=== PATIENT | male | born 1980 | race Hispanic/Latino ===

== ENCOUNTER 2020-06-21 09:06 | Emergency (ER) | payer MEDICARE ==
[2020-06-21 10:00] LABS: Absolute Lymphocytes (CBC) 1.6 K/uL (0.7-4.9); Basophils % 0.7 % (0-1.3); Hematocrit 49.8 % (39.6-49.0); Lymphocytes % 19.5 % (15.3-44.8); MPV 9.7 fL (7.6-11.3); RBC Red Blood Cell Count 5.51 M/uL (4.33-5.43)
[2020-06-21 10:05] LABS: Protime INR 0.99
[2020-06-21 10:28] LABS: ALT/SGPT 44 U/L (12-78); AST/SGOT 27 U/L (15-37); Albumin 4.1 g/dL (3.4-5.0); Alkaline Phosphatase 67 U/L (45-117); BUN Blood Urea Nitrogen 10 mg/dL (7-18); Bicarbonate 26 mmol/L (21-32); Bilirubin Direct 0.1 mg/dL (0-0.2); Bilirubin Total 0.5 mg/dL (0.2-1.0); Glucose Level 100 mg/dL (74-106); Magnesium 2.1 mg/dL (1.8-2.4); NT PRO-BNP 41 pg/mL (<125); Potassium 3.9 mmol/L (3.5-5.1); Protein, Total 8.2 g/dL (6.4-8.2); Sodium Level 138 mmol/L (136-145); Troponin (Emerg Dept Use Only) < 0.02 ng/mL (0.0-0.045)
--- NOTE | 2020-06-21 10:30 | RAD REPORT ---
EXAM DESCRIPTION: CT - Head Brain Wo Cont - 06/21/2020 10:00 am CLINICAL HISTORY: Dizziness COMPARISON: None. TECHNIQUE: Computed axial tomography of the head was obtained. IV contrast was not requested. All CT scans are performed using dose optimization technique as appropriate and may include automated exposure control or mA/KV adjustment according to patient size. FINDINGS: An intracranial bleed is not seen . The ventricles are normal in caliber. No extra-axial fluid collection is noted. Fluid within the sinuses/ mastoids is not seen. IMPRESSION: No acute intracranial abnormality is seen. If patient's symptoms persist MRI of the bra in would be recommended.
--- NOTE | 2020-06-21 10:35 | RAD REPORT ---
EXAM DESCRIPTION: CT - Abdomen Pelvis W Contrast - 06/21/2020 10:03 am CLINICAL HISTORY: Abdominal pain COMPARISON: none. TECHNIQUE: Computed axial tomography of the abdomen pelvis was obtained. 100 cc Isovue-300 was admin istered intravenously. Oral contrast was not requested which limits evaluation of bowel. All CT scans are performed using dose optimization technique as appropriate and may include automated exposure control or mA/KV adjustment according to patient size. FINDINGS: The liver, spleen, pancreas, adrenal and and left kidney appear unremarkable. A 2.5 centimeter mass is present within the right kidney. [place] [id number]. A couple of tiny nonobstructing right renal calculi are seen. Post surgical changes involve the spine. The wall of the transverse colon appears mildly thickened. Normal appendix Rectum is mildly distended with stool There is no evidence of diverticulitis. IMPRESSION: 2.5 centimeter right renal mass may represent a benign complex cyst or neoplasm. It is r ecommended that the patient have an unenhanced CT scan of the kidneys on another date. This can then be compared to the current exam to determine if there is abnormal enhancement to suggest neoplasm Tiny nonobstructing right renal calculi The wall of the transverse colon appears mildly thickened. It is uncertain whether this is simply sec ondary to incomplete distention or mild colitis
--- NOTE | 2020-06-21 10:53 | RAD REPORT ---
EXAM DESCRIPTION: Sharon Single View06/21/2020 10:29 am CLINICAL HISTORY: Chest pain COMPARISON: none FINDINGS: Calcified granuloma right lung. The lungs appear clear of acute infiltrate. The heart is normal size IMPRESSION: No acute abnormalities displayed
--- NOTE | 2020-06-21 11:25 | EDPHYS ---
Physician Documentation [facility] Name: Margarito Corley Age: 39 yrs Sex: Male : 1980 Arrival Date: 06/21/2020 Time: 09:12 Bed 20 Private MD: ED Physician Don Cesar HPI: 06/21 09:41 This 39 yrs old Male presents to ER via Ambulatory with complaints of High jmm Blood Pressure, Rectal Bleeding, Abdominal Cramping. 09:41 The patient presents to the emergency department with bleeding from the rectum/anus. jmm Onset: The symptoms/episode began/occurred gradually, today. This is a 39 year old male with a history of htn, renal mass that presents to the ED with complaints of elevated blood pressure, dizziness, and rectal bleeding beginning today while at work. Patient states he has been previously diagnosed with a rectal cyst and a renal mass this year. . Historical: - Allergies: 09:38 Codeine; em - PMHx: 09:38 Hypertension; em - PSHx: 09:38 back sx; em - Immunization history:: Flu vaccine is not up to date. - Social history:: Smoking status: Patient reports the use of cigarette tobacco products, smokes one-half pack cigarettes per day. ROS: 09:41 Constitutional: Negative for fever, chills, and weight loss, Cardiovascular: Negative jmm for chest pain, palpitations, and edema, Respiratory: Negative for shortness of breath, cough, wheezing, and pleuritic chest pain. 09:41 Abdomen/GI: Positive for rectal bleeding. 09:41 All other systems are negative. Exam: 09:41 Constitutional: This is a well developed, well nourished patient who is awake, alert, jmm and in no acute distress. Head/Face: atraumatic. Eyes: EOMI, no conjunctival erythema appreciated ENT: Moist Mucus Membranes Neck: Trachea midline, Supple Chest/axilla: Normal chest wall appearance and motion. Cardiovascular: Regular rate and rhythm. No edema appreciated Respiratory: Normal respirations, no respiratory distress appreciated Abdomen/GI: Non distended, soft Back: Normal ROM Skin: General appearance color normal MS/ Extremity: Moves all extremities, no obvious deformities appreciated, no edema noted to the lower extremities Neuro: Awake and alert, normal gait Psych: Behavior is normal, Mood is normal, Patient is cooperative and pleasant 10:47 ECG was reviewed by the Attending Physician. [facility] Vital Signs: 09:35 BP 128 / 93; Pulse 81; Resp 18; Temp 98.1(O); Pulse Ox 98% on R/A; Weight 97.52 kg; em Height 5 ft. 10 in. (177.80 cm); Pain 0/10; 10:47 BP 122 / 82; Pulse 58; Resp 18; Pulse Ox 99% on R/A; em 11:51 BP 142 / 79; Pulse 71; Resp 18; Pulse Ox 99% on R/A; em 09:35 Body Mass Index 30.85 (97.52 kg, 177.80 cm) em MDM: 09:38 Patient medically screened. [facility] 11:23 Data reviewed: vital signs, nurses notes. Counseling: I had a detailed discussion with [facility] the patient and/or guardian regarding: the historical points, exam findings, and any diagnostic results supporting the discharge/admit diagnosis, lab results, radiology results, the need for outpatient follow up, to return to the emergency department if symptoms worsen or persist or if there are any questions or concerns that arise at home. ED course: Patient is alert and non toxic in appearance in the ED. Patient is advised to follow up with GI for further evaluation. Patient is already aware of renal mass. I discussed the need for further evaluation with biopsy. Patient is otherwise given strict return precautions. patient understood and agrees with the plan of care. . 06/21 09:39 Order name: Basic Metabolic Panel; Complete Time: 10:38 [facility] 06/21 09:39 Order name: CBC with Diff; Complete Time: 10:14 [facility] 06/21 09:39 Order name: LFT's; Complete Time: 10:38 [facility] 06/21 09:39 Order name: Magnesium; Complete Time: 10:38 [facility] 06/21 09:39 Order name: NT PRO-BNP; Complete Time: 10:38 [facility] 06/21 09:39 Order name: PT-INR; Complete Time: 10:14 [facility] 06/21 09:17 Order name: Gown patient; Complete Time: 09:22 [facility] 06/21 09:39 Order name: Troponin (emerg Dept Use Only); Complete Time: 10:38 [facility] 06/21 09:39 Order name: XRAY Chest (1 view); Complete Time: 10:56 06/21 09:39 Order name: EKG; Complete Time: 09:40 06/21 09:39 Order name: Cardiac monitoring; Complete Time: 09:50 06/21 09:39 Order name: EKG - Nurse/Tech; Complete Time: 10:51 06/21 09:39 Order name: CT Abd/Pelvis - IV Contrast Only; Complete Time: 10:38 06/21 09:41 Order name: CT Head Brain wo Cont; Complete Time: 10:38 06/21 09:39 Order name: IV Saline Lock; Complete Time: 10:27 06/21 09:39 Order name: Labs collected and sent; Complete Time: 10: 06/21 09:39 Order name: O2 Per Protocol; Complete Time: 10:06/21 09:39 Order name: O2 Sat Monitoring; Complete Time: 09:50 jmm EC:47 Rate is 59 beats/min. Rhythm is regular. QRS [place] is Normal. MO interval is normal. QRS jmm interval is normal. QT interval is normal. No Q waves. T waves are Normal. No ST changes noted. Reviewed by me. Administered Medications: No medications were administered Disposition: 17:02 Co-signature as Attending Physician, Don Cesar MD. rn Disposition: 06/21/20 11:25 Discharged to Home. Impression: Colitis. - Condition is Stable. - Discharge Instructions: Colitis. - Prescriptions for Flagyl 500 mg Oral Tablet - take 1 tablet by ORAL route every 6 hours for 10 days; 40 tablet. Cipro 500 mg Oral Tablet - take 1 tablet by ORAL route every 12 hours for 7 days; 20 tablet. - Medication Reconciliation Form, Thank You Letter, Antibiotic Education, Prescription Opioid Use, Work release form form. - Follow up: Private Physician; When: 2 - 3 days; Reason: Recheck today's complaints, Continuance of care, Re-evaluation by your physician. Signatures: Dispatcher [employer] Garrison Sands PA PA jmm Munoz, Edgar, RN RN Don Drake MD MD rn transitional: (The following items were deleted from the chart) 11:51 11:25 06/21/2020 11:25 Discharged to Home. Impression: Colitis. Condition is Stable. em Forms are Medication Reconciliation Form, Thank You Letter, Antibiotic Education, Prescription Opioid Use. Follow up: Private Physician; When: 2 - 3 days; Reason: Recheck today's complaints, Continuance of care, Re-evaluation by your physician. julius
--- NOTE | 2020-06-21 11:25 | ER ---
Nurse's Notes [facility] Name: Margarito Corley Age: 39 yrs Sex: Male : 1980 Arrival Date: 06/21/2020 Time: 09:12 Bed 20 Private MD: Diagnosis: Colitis Presentation: 06/21 09:35 Chief complaint: Patient states: reports high BP of 130s/90s for 4-5 days, also reports em being dizzy and seeing black spots, reports blood in stool since last night, hx of cyst on rectum and kidney mass. Coronavirus screen: Client denies travel out of the [place] in the last 14 days. Ebola Screen: Patient negative for fever greater than or equal to 101.5 degrees Fahrenheit, and additional compatible Ebola Virus Disease symptoms Patient denies exposure to infectious person. Patient denies travel to an Ebola-affected area in the 21 days before illness onset. No symptoms or risks identified at this time. Initial Sepsis Screen: Does the patient meet any 2 criteria? No. Patient's initial sepsis screen is negative. Does the patient have a suspected source of infection? No. Patient's initial sepsis screen is negative. Risk Assessment: Do you want to hurt yourself or someone else? Patient reports no desire to harm self or others. Onset of symptoms was June 20, 2020. 09:35 Method Of Arrival: Ambulatory em 09:35 Acuity: GREG 3 em Historical: - Allergies: 09:38 Codeine; em - PMHx: 09:38 Hypertension; em - PSHx: 09:38 back sx; em - Immunization history:: Flu vaccine is not up to date. - Social history:: Smoking status: Patient reports the use of cigarette tobacco products, smokes one-half pack cigarettes per day. Screenin:38 Abuse screen: Denies threats or abuse. Nutritional screening: No deficits noted. em Tuberculosis screening: No symptoms or risk factors identified. Fall Risk None identified. Assessment: 09:35 General: Appears in no apparent distress. comfortable, Behavior is calm, cooperative, em appropriate for age, Denies fever. Pain: Complains of pain in abdomen Pain currently is 2 out of 10 on a pain scale. Neuro: Level of Consciousness is awake, alert, obeys commands, Oriented to person, place, time, situation, Appropriate for age Reports dizziness. Cardiovascular: Capillary refill < 3 seconds Patient's skin is warm and dry. Respiratory: Airway is patent Respiratory effort is even, unlabored, Respiratory pattern is regular, symmetrical. GI: Abdomen is round non-distended, Bowel sounds present X 4 quads. Abd is soft X 4 quads Abdomen is tender to palpation in right lower quadrant and left lower quadrant Reports rectal bleeding, Patient currently denies nausea. Derm: Skin is intact, is healthy with good turgor, Skin is pink, warm \T\ dry. Musculoskeletal: Capillary refill < 3 seconds, Range of motion: intact in all extremities. 10:47 Reassessment: Patient appears in no apparent distress at this time. Patient and/or em family updated on plan of care and expected duration. Pain level reassessed. Patient is alert, oriented x 3, equal unlabored respirations, skin warm/dry/pink. 11:51 Reassessment: Patient appears in no apparent distress at this time. Patient and/or em family updated on plan of care and expected duration. Pain level reassessed. Patient is alert, oriented x 3, equal unlabored respirations, skin warm/dry/pink. Vital Signs: 09:35 BP 128 / 93; Pulse 81; Resp 18; Temp 98.1(O); Pulse Ox 98% on R/A; Weight 97.52 kg; em Height 5 ft. 10 in. (177.80 cm); Pain 0/10; 10:47 BP 122 / 82; Pulse 58; Resp 18; Pulse Ox 99% on R/A; em 11:51 BP 142 / 79; Pulse 71; Resp 18; Pulse Ox 99% on R/A; em 09:35 Body Mass Index 30.85 (97.52 kg, 177.80 cm) em ED Course: 09:12 Patient arrived in ED. mr 09:16 Sung Slaughter, RN is Primary Nurse. em 09:16 Garrison Hairston PA is PHCP. [facility] 09:16 Don Cesar MD is Attending Physician. jm 09:37 Triage completed. em 09:38 Arm band placed on. em 09:38 Patient has correct armband on for positive identification. Placed in gown. Bed in low em position. Side rails up X2. Adult w/ patient. Pulse ox on. NIBP on. 09:55 Initial lab(s) drawn, by me, sent to lab. Inserted saline lock: 20 gauge in right em antecubital area, using aseptic technique. Blood collected. 10:00 CT Head Brain wo Cont In Process Unspecified. EDMS 10:03 CT Abd/Pelvis - IV Contrast Only In Process Unspecified. EDMS 10:30 XRAY Chest (1 view) In Process Unspecified. EDMS 11:50 No provider procedures requiring assistance completed. IV discontinued, intact, em bleeding controlled, No redness/swelling at site. Pressure dressing applied. Administered Medications: No medications were administered Outcome: 11:25 Discharge ordered by . julius 11:50 Discharged to home ambulatory. em 11:50 Condition: good 11:50 Discharge instructions given to patient, Instructed on discharge instructions, follow up and referral plans. medication usage, Demonstrated understanding of instructions, follow-up care, medications, Prescriptions given X 2. 11:51 Patient left the ED. em Signatures: Dispatcher [employer] EDMS Garrison Hairston PA PA jmm Rivera, Mary mr Sung Slaughter, RN RN em
[2020-06-21 12:01] VITALS: TEMP 98.1
[2020-06-21 12:02] VITALS: O2SAT 99
[2020-06-21 12:03] VITALS: BP 142/79
== END 2020-06-21 11:51 | disposition home or self-care (01) ==
LOC: ER 09:06
DX: K52.9 Noninfective gastroenteritis and colitis, unspecified (principal); Z88.6 Allergy status to analgesic agent
CPT/HCPCS: 36415; 70450; 71045; 74177; 80048; 80076; 82565; 83735; 83880; 84484; 85025; 85610; 93005; 99284; Q9967